=== PATIENT | male | born 1990 | race Caucasian/White ===

== ENCOUNTER 2017-07-19 03:31 | Emergency (ER) | payer SELFPAY ==
[~2017-07-19] VITALS: Ht 185.4 cm; Wt 83.9 kg
[~2017-07-19 03:31] MED LIST: AMOX500T2 PO; AMOX875T2 PO; Flexeril; HYDR-3720 PO; HYDR-756 PO; HYDR-757 PO; NAPR550T PO; PANT40TA2 PO; PRM25T PO; SILV25CR TP; SUCR1TAB36 PO; TRAM50TA2 PO
[2017-07-19] MEDS ORDERED: RX-NAPROXEN (NAPROSYN) 250 MG TAB PPK#4 PO STA (03:44)
[2017-07-19] MEDS ORDERED: AUGMENTIN 875 MG TAB (AMOXICILLIN/CLAVULANATE) PO SCH (03:45)
[2017-07-19] MEDS ORDERED: LIDOCAINE 2% VISCOUS 15 ML UDC MM ONE (03:45)
[2017-07-19] MEDS ORDERED: LIDO15SO2 MM (03:47)
[2017-07-19] MEDS ORDERED: NAPR500T3 PO (03:47)
[2017-07-19] MEDS ORDERED: AMOX-358 PO (03:47)
--- NOTE | 2017-07-19 03:48 | ED EENT ---
History of Present Illness General Chief Complaint: Dental Problems/Pain Stated Complaint: TOOTH PAIN L SIDE Nursing Triage Note: PT C/O L LOWER BACK DENTAL PAIN. Source: patient History of Present Illness Time seen by provider: 03:37 Initial Comments PT C/O DENTAL PAIN TO LEFT LOWER MOLAR AREA X 1 WEEK STATES HE WOKE UP IMMEDIATELY PRIOR TO ARRIVAL < 20 MINUTES AGO, WITH SEVERE PAIN TO JAW STATES "IT'S SO BAD IT'S NUMB AND CONSTANT THROBBING WITH PAIN, AND IT'S SO BAD IT'S GIVING ME A HEADACHE" NO SWELLING TO FACE NO FEVER HAS CHRONIC DENTAL PROBLEMS, INCLUDING PRIOR PROBLEMS WITH THIS TOOTH TYLENOL AND MOTRIN TAKEN EARLIER IN WEEK HELPED, BUT HAS NOT TAKEN ANYTHING TONIGHT FOR PAIN NO INJURY TO TOOTH PT NEVER SEES A DENTIST PCP; [facility] Allergies and Home Medications Allergies Coded Allergies: No Known Drug Allergies (Unverified , 10/01/11) Home Medications Amoxicillin 875 Mg Tablet, 875 MG PO BID, #20 Ref 0 Prescribed by: GRANT LOAIZA on 07/03/16410 Amoxicillin/Potassium Clav 1 Each Tablet, 1 EACH PO BID, #20 Prescribed by: ALISSA GALLEGOS on 07/19/17 034 Hydrocodone/Acetaminophen 1 Each Tablet, 1 EACH PO Q6H PRN for dental pain, #20 Ref 0 Prescribed by: GRANT LOAIZA on 07/03/16410 Lidocaine HCl 15 Ml Solution, 1-2 ML MM Q 1-2 HOURS, #100 Prescribed by: ALISSA GALLEGOS on 07/19/17346 Naproxen 500 Mg Tablet, 500 MG PO BID, #20 Prescribed by: ALISSA GALLEGOS on 07/19/17346 Naproxen Sodium 550 Mg Tablet, 550 MG PO Q12H, #20 Ref 0 Prescribed by: GRANT LOAIZA on 07/03/16410 Review of Systems Constitutional: no symptoms reported Eyes: No Symptoms Reported Ears: No Symptoms Reported Nose: no symptoms reported Mouth: see HPI, pain Throat: no symptoms reported Respiratory: no symptoms reported Cardiovascular: no symptoms reported Gastrointestinal: no symptoms reported Musculoskeletal: no symptoms reported Skin: no symptoms reported Neurological: See HPI, Headache Hematologic/Lymphatic: No Symptoms Reported Immunological/Allergic: no symptoms reported Past Ixswnid-Vwcyyg-Bsxbhn Hx Patient Social History Alcohol Use: Rarely Uses Recreational Drug Use: No Smoking Status: Current Everyday Smoker (1 PPD) Type Used: Cigarettes 2nd Hand Smoke Exposure: Yes Recent Foreign Travel: No Contact w/Someone Who Travel: No Recent Infectious Disease Expo: No Recent Hopitalizations: No Physical Abuse: No Sexual Abuse: No Immunizations Up To Date Date of Pneumonia Vaccine: Jul 05, 2011 Date of Influenza Vaccine: Aug 11, 2014 Seasonal Allergies Seasonal Allergies: No Surgeries History of Surgeries: Yes Surgeries: Adenoidectomy, Tonsillectomy Respiratory History of Respiratory Disorde: No Cardiovascular History of Cardiac Disorders: No Neurological History of Neurological Disord: No Reproductive System Hx Reproductive Disorders: No Sexually Transmitted Disease: No Gastrointestinal History of Gastrointestinal Di: No Musculoskeletal History of Musculoskeletal Dis: No Endocrine History of Endocrine Disorders: No HEENT History of HEENT Disorders: Yes (CHRONIC DENTAL PROBLEMS) Cancer History of Cancer: No Psychosocial History of Psychiatric Problem: No Suicide Risk Score: 0 Integumentary History of Skin or Integumenta: No Blood Transfusions History of Blood Disorders: No Physical Exam Vital Signs Vital Sign - Last 12Hours 07/19/17 03:36 Temp 97.3 Pulse 85 Resp 16 B/P (MAP) 135/75 Pulse Ox 97 General Appearance: WD/WN, no apparent distress, other (DOES NOT APPEAR TO BE IN ANY DISCOMFORT-ARMS OVERHEAD AND LEGS OUTSTRETCHED. TALKS WITHOUT DIFFICULTY) Eyes: bilateral eye normal inspection, bilateral eye PERRL, bilateral eye EOMI Ears: bilateral ear auricle normal, bilateral ear canal normal, bilateral ear TM normal Nose: normal inspection Mouth/Throat: other (MULTIPLE TEETH WITH DECAY. LEFT LOWER FIRST MOLAR WITH EXTENSIVE CARIES, + DENTAL TENDERNESS, MILD SWELLING AND ERYTHEMA TO ADJACENT GUM TISSUE. NO FACIAL SWELLING. ) Neck: normal inspection, No lymphadenopathy (R), No lymphadenopathy (L) Cardiovascular: regular rate, rhythm, no murmur Respiratory: normal breath sounds Neurologic/Psychiatric: director voice II-XII nml as tested, no motor/sensory deficits, alert, normal mood/affect, oriented x 3, No facial droop Skin: normal color, warm/dry Progress/Results/Core Measures Results/Orders My Orders Orders - ALISSA GALLEGOS DO Amoxicillin/Clavulanate Tablet (Augmenti (07/19/17 03:45) Lidocaine 2% Viscous 15 Ml (Xylocaine Vi (07/19/17 03:45) Rx-Naproxen (Rx-Naprosyn) (07/19/17 03:44) Vital Signs/I&O Vital Sign - Last 12Hours 07/19/17 03:36 Temp 97.3 Pulse 85 Resp 16 B/P (MAP) 135/75 Pulse Ox 97 Blood Pressure Mean: 95 Departure Impression Impression: Primary Impression: Dental caries Disposition: HOME, SELF-CARE Condition: Stable Departure-Patient Inst. Referrals: [facility] (PCP/Family) Primary Care Physician Patient Instructions: Dental Pain (DC), Tooth Decay, Adult (DC) Add. Discharge Instructions: FREQUENT SALT WATER SWISHES SOFT FOODS, AVOID FOODS THAT REQUIRE CHEWING FOLLOW UP WITH [facility] SOON POSSIBLE --CALL ON THURSDAY MORNING FOR APPOINTMENT All discharge instructions reviewed with patient and/or family. Voiced understanding. Scripts Naproxen (Naproxen) 500 Mg Tablet 500 MG PO BID, #20 TAB Prov: ALISSA GALLEGOS DO 07/19/17 Lidocaine HCl (Lidocaine HCl Viscous) 15 Ml Solution 1-2 ML MM Q 1-2 HOURS for Pain, #100 ML Prov: ALISSA GALLEGOS DO 07/19/17 Amoxicillin/Potassium Clav (Augmentin 875-125 Tablet) 1 Each Tablet 1 EACH PO BID for INFECTION, #20 TAB Prov: ALISSA GALLEGOS DO 07/19/17 ALISSA GALLEGOS DO Jul 19, 2017 03:48
[2017-07-19 04:05] VITALS: BP 135/75
== END 2017-07-19 04:05 | disposition home or self-care (01) ==
LOC: EDUNIT# 03:31 → ER 03:33
DX: K02.9 Dental caries, unspecified (principal); F17.210 Nicotine dependence, cigarettes, uncomplicated; Z90.89 Acquired absence of other organs
CPT/HCPCS: 99283

== ENCOUNTER 2017-07-20 19:02 | Emergency (ER) | payer SELFPAY ==
[2017-07-19 04:05] VITALS: BP 135/75
[~2017-07-20 19:02] MED LIST changes: +AMOX-358 PO; +LIDO15SO2 MM; +NAPR500T3 PO
--- OUTSIDE RECORDS SUMMARY | 2017-07-21 06:29 | XMS REPORT ---
Author Author DEN CLOUD [facility] Address [address] [place] [address] Care Team Providers Care Nail Making Machine Setter Name Role Phone DEN CLOUD Unavailable PROBLEMS Type Condition ICD9-CM Code [id number] Code Onset Dates Condition Status SNOMED Code Problem Anxiety F41.9 Active 90174766 Problem Mood disorder F39 Active 62416185 Problem Unspecified acute conjunctivitis 372.00 Active 64189012 Problem ADHD (attention deficit hyperactivity disorder), combined type F90.2 Active 07978983 Problem Generalized anxiety disorder F41.1 Active 94112848 ALLERGIES Unknown Allergies SOCIAL HISTORY No smoking Hx information available PLAN OF CARE Activity Details Follow Up Next available Reason:BH F/U VITAL SIGNS MEDICATIONS Unknown Medications RESULTS No Results PROCEDURES Procedure Date Ordered Related Diagnosis Body Site Psychotherapy, patient &/family, 45 minutes, established patient Sep 24, 2016 IMMUNIZATIONS No Known Immunizations
--- OUTSIDE RECORDS SUMMARY | 2017-07-21 06:29 | XMS REPORT ---
Author Author SHANNEN CABRAL [employer] Address Unknown Phone Unavailable Care Team Providers Care Health Data Analyst Name Role Phone SHANNEN CABRAL CP Unavailable Allergies, Adverse Reactions, Alerts Substance Reaction Event Type Abilify weakness Drug Allergy Problems Problem Type Condition Code Onset Dates Condition Status Assessment Dental examination Z01.20 Active Problem Unspecified acute conjunctivitis 372.00 Active Medications Medication Code System Code Instructions Start Date End Date Status Dosage Hydrocodone-Acetaminophen [facility] [address]-34 not defined Amoxicillin ER [facility] [address]-16 not defined Naproxen NDC 0 not defined Beyer [facility] [address]-84 5-325 MG Orally every 6 hrs Jul 08, 2016 Jul 12, 2016 1 tablet as needed Procedures Procedure Coding System Code Date INTRAORL-PERIAPICAL 1 FILM 33949 CPT-4 D0220 Jul 08, 2016 BITEWING - SINGLE FILM CPT-4 D0270 Jul 08, 2016 LTD ORAL EVALUATION - PROBLEM FOCUS CPT-4 D0140 Jul 08, 2016 Vital Signs Date/Time: Jul 08, 2016 Blood Pressure Diastolic 73 mmHg Blood Pressure Systolic 125 mmHg Height 75 in Results No Known Results Summary Purpose [employer] Submission
--- OUTSIDE RECORDS SUMMARY | 2017-07-21 06:29 | XMS REPORT ---
Author Author GRANT SAUL [facility] Address [address] [place] [address] Care Team Providers Care Online Content Coordinator Name Role Phone GRANT SAUL Unavailable PROBLEMS Type Condition ICD9-CM Code [id number] Code Onset Dates Condition Status SNOMED Code Problem Anxiety F41.9 Active 06808356 Problem Mood disorder F39 Active 68184550 Problem Unspecified acute conjunctivitis 372.00 Active 36391073 Problem ADHD (attention deficit hyperactivity disorder), combined type F90.2 Active 48983751 Problem Generalized anxiety disorder F41.1 Active 76434989 ALLERGIES Unknown Allergies SOCIAL HISTORY No smoking Hx information available PLAN OF CARE VITAL SIGNS MEDICATIONS Medication Instructions Dosage Frequency Start Date End Date Duration Status Xanax 1 MG Orally Once a day 1 tablet 24h Sep, 28 days Active RESULTS No Results PROCEDURES No Known procedures IMMUNIZATIONS No Known Immunizations
--- OUTSIDE RECORDS SUMMARY | 2017-07-21 06:30 | XMS REPORT ---
Author Author GRANT SAUL [facility] Address [address] [place] [address] Care Team Providers Care Ad Setter Name Role Phone GRANT SAUL Unavailable PROBLEMS Type Condition ICD9-CM Code [id number] Code Onset Dates Condition Status SNOMED Code Problem Anxiety F41.9 Active 19998953 Problem Mood disorder F39 Active 85620823 Problem Unspecified acute conjunctivitis 372.00 Active 40350446 Problem ADHD (attention deficit hyperactivity disorder), combined type F90.2 Active 28744035 Problem Generalized anxiety disorder F41.1 Active 12080733 ALLERGIES Substance Reaction Event Type Date Status Abilify weakness Drug Allergy Sep, Active SOCIAL HISTORY No smoking Hx information available PLAN OF CARE VITAL SIGNS MEDICATIONS Unknown Medications RESULTS No Results PROCEDURES No Known procedures IMMUNIZATIONS No Known Immunizations
--- OUTSIDE RECORDS SUMMARY | 2017-07-21 06:30 | XMS REPORT ---
Author Author GRANT SAUL [facility] Address [address] [place] [address] Care Team Providers Care Distribution Warehouse Manager Name Role Phone GRANT SAUL Unavailable PROBLEMS Type Condition ICD9-CM Code [id number] Code Onset Dates Condition Status SNOMED Code Problem Anxiety F41.9 Active 05440918 Problem Mood disorder F39 Active 89113013 Problem Unspecified acute conjunctivitis 372.00 Active 18944696 Problem ADHD (attention deficit hyperactivity disorder), combined type F90.2 Active 82354796 Problem Generalized anxiety disorder F41.1 Active 77273287 ALLERGIES Substance Reaction Event Type Date Status Abilify weakness Drug Allergy Sep, Active SOCIAL HISTORY No smoking Hx information available PLAN OF CARE VITAL SIGNS Height 75 in 2016-09-26 Weight 174.9 lbs 2016-09-26 Temperature 98.1 degrees Fahrenheit 2016-09-26 Heart Rate 72 bpm 2016-09-26 Respiratory Rate 18 2016-09-26 BMI 21.86 kg/m2 2016-09-26 Blood pressure systolic 100 mmHg 2016-09-26 Blood pressure diastolic 72 mmHg 2016-09-26 MEDICATIONS Medication Instructions Dosage Frequency Start Date End Date Duration Status Xanax 1 MG Orally Once a day 1 tablet 24h Sep, 28 days Active RESULTS No Results PROCEDURES Procedure Date Ordered Related Diagnosis Body Site Office Visit, Est Pt., Level 3 Sep 26, 2016 IMMUNIZATIONS No Known Immunizations
--- OUTSIDE RECORDS SUMMARY | 2017-07-21 06:30 | XMS REPORT | Continuity of Care Document ---
Author Author 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 04/21/2008 ALEXANDRE HOOVER MD 314.01 CD ADHD COMBINED 05/03/2008 ALEXANDRE HOOVER MD V58.69 MEDICATION HIGH RISK 05/15/2008 ALEXANDRE HOOVER MD V74.1 SCREENING EXAMINATION FOR PULMONARY TUBERCULOSIS 06/07/2008 ALEXANDRE HOOVER MD 078.10 WARTS UNSPECIFIED ALL SITES 07/17/2009 ALEXANDRE HOOVER MD V74.5 STD SCREEN 12/28/2011 Ot 922.1 CONTUSION OF CHEST WALL 12/28/2011 Ot 959.11 OTH INJURY OF CHEST WALL 12/28/2011 Ot E000.8 OTHER EXTERNAL CAUSE STATUS 12/28/2011 Ot E849.0 ACCIDENT IN HOME 12/28/2011 Ot E917.4 STAT OB W/O SUB FALL NEC 03/08/2012 Ot 276.50 VOLUME DEPLETION, UNSPECIFIED 03/08/2012 Ot 787.03 VOMITING ALONE 12/08/2013 ALEXANDRE HOOVER MD 372.00 ACUTE CONJUNCTIVITIS UNSPECIFIED 09/24/2014 KATIE BLANCAS MD Ot 521.00 UNSPEC DENTAL CARIES 09/24/2014 KATIE BLANCAS MD Ot 525.9 DENTAL DISORDER NOS 10/24/2014 MARCO PRICE Ot 521.00 UNSPEC DENTAL CARIES 10/24/2014 MARCO PRICE Ot 522.5 PERIAPICAL ABSCESS 10/24/2014 MARCO PRICE Ot 525.9 DENTAL DISORDER NOS 09/20/2015 HANY GARCIA APRN Ot F17.210 NICOTINE DEPENDENCE, CIGARETTES, UNCOMPL 09/20/2015 HANY GARCIA APRN Ot K29.70 GASTRITIS, UNSPECIFIED, WITHOUT BLEEDING 06/12/2016 KATIE BLANCAS MD Ot M54.5 LOW BACK PAIN 06/12/2016 KATIE BLANCAS MD Ot M62.830 MUSCLE SPASM OF BACK 07/05/2016 GRANT LOAIZA DO Ot F17.210 NICOTINE DEPENDENCE, CIGARETTES, UNCOMPL 07/05/2016 GRANT LOAIZA DO Ot K02.9 DENTAL CARIES, UNSPECIFIED 07/05/2016 GRANT LOAIZA DO Ot K08.9 DISORDER OF TEETH AND SUPPORTING STRUCTU Procedures Results Encounters ACCT No. Visit Date/Time Discharge Status Pt. Type Provider Facility Loc./Unit Complaint [id number] 12/08/2013 10:43:00 12/08/2013 23: 59:59 CLS Outpatient ALEXANDRE HOOVER MD [id number] 07/03/2016 03:46:00 2015 04:19:00 DIS Emergency GRANT LOAIZA DO Via [facility] ER DENTAL PAIN [id number] 06/12/2016 07:48:00 2015 08:34:00 DIS Emergency KATIE BLANCAS MD [facility] ER BACK PAIN [id number] 09/20/2015 15:00:00 2014 16:15:00 DIS Emergency HANY GARCIA APRN [facility] ER ABD PAIN [id number] 10/24/2014 16:37:00 2014 17:44:00 DIS Emergency MARCO PRICE [facility] ER DENTAL PAIN [id number] 09/24/2014 09:28:00 2013 10:45:00 DIS Emergency KATIE BLANCAS MD [facility] ER DENTAL PAIN [id number] 03/08/2012 19:18:00 Document Registration [id number] 12/28/2011 16:43:00 Document Registration
--- OUTSIDE RECORDS SUMMARY | 2017-07-21 06:30 | XMS REPORT ---
Author Author GRANT SAUL [facility] Address [address] [place] [address] Care Team Providers Care Benefits Representative Name Role Phone GRANT SAUL Unavailable PROBLEMS Type Condition ICD9-CM Code HSU69-TC Code Onset Dates Condition Status SNOMED Code Problem Anxiety F41.9 Active 61659287 Problem Mood disorder F39 Active 15490125 Problem Unspecified acute conjunctivitis 372.00 Active 72239068 Problem ADHD (attention deficit hyperactivity disorder), combined type F90.2 Active 47387668 Problem Generalized anxiety disorder F41.1 Active 36717929 ALLERGIES No Information SOCIAL HISTORY Never Assessed PLAN OF CARE VITAL SIGNS MEDICATIONS Unknown Medications RESULTS No Results PROCEDURES No Known procedures IMMUNIZATIONS No Known Immunizations MEDICAL (GENERAL) HISTORY Type Description Date Medical History back trouble Medical History ADHD Medical History Anxiety with Anger problems Surgical History tonsillectomy and adenoidectomy Hospitalization History Surgery(s) only
== END 2017-07-20 20:19 | disposition left against medical advice (07) ==
LOC: EDUNIT# 19:02 → ER 19:03
DX: K08.89 Other specified disorders of teeth and supporting structures (principal)

== ENCOUNTER 2017-09-24 21:59 | Emergency (ER) | payer SELFPAY ==
[~2017-09-24] VITALS: Ht 190.5 cm; Wt 83.9 kg
[~2017-09-24 21:59] MED LIST changes: +NAPR-1070 PO; -NAPR500T3 PO; +NAPR500T4 PO; -NAPR550T PO
[2017-09-24] MEDS ORDERED: AMOXICILLIN 500 MG (POLYMOX) CAP PO STA (22:03)
[2017-09-24] MEDS ORDERED: RX-NAPROXEN (NAPROSYN) 250 MG TAB PPK#4 PO STA (22:03)
[2017-09-24] MEDS ORDERED: LIDOCAINE/EPI 2% 1:100,00 (XYLOCAINE) 20 ML VIAL ONE (22:04)
--- OUTSIDE RECORDS SUMMARY | 2017-09-24 22:04 | XMS REPORT | Continuity of Care Document ---
Author Author [facility] Address Unknown Phone Unavailable Allergies Active Description Code Type Severity Reaction Onset Reported/Identified Relationship to Patient Clinical Status Yes No Known Drug Allergies [id number] Drug Allergy Unknown N/A 10/01/2011 Yes Abilify Drug Allergy N/A N/A 12/08/2013 Medications There is no data. Problems Date Dx Coded Attending Type Code [...] 525.9 DENTAL DISORDER NOS 09/20/2015 HANY GARCIA BOTTLE TESTER Ot F17.210 NICOTINE DEPENDENCE, CIGARETTES, UNCOMPL 09/20/2015 HANY GARCIA BOTTLE TESTER Ot K29.70 GASTRITIS, UNSPECIFIED, WITHOUT BLEEDING 06/12/2016 YONNY LARA, KATIE Oneal Ot M54.5 LOW BACK PAIN 06/12/2016 KATIE BLANCAS MD Ot M62.830 MUSCLE SPASM OF BACK 07/03/2016 GRANT LOAIZA DO Ot F17.210 NICOTINE DEPENDENCE, CIGARETTES, UNCOMPL 07/03/2016 GRANT LOAIZA DO Ot K02.9 DENTAL CARIES, UNSPECIFIED 07/03/2016 GRANT LOAIZA DO Ot K08.9 DISORDER OF TEETH AND SUPPORTING STRUCTU 07/05/2016 GRANT LOAIZA DO Ot F17.210 NICOTINE DEPENDENCE, CIGARETTES, UNCOMPL 07/05/2016 GRANT LOAIZA DO Ot K02.9 DENTAL CARIES, UNSPECIFIED 07/05/2016 GRANT LOAIZA DO Ot K08.9 DISORDER OF TEETH AND SUPPORTING STRUCTU 07/19/2017 ELELLIE Musa DOA Kimmy Ot F17.210 NICOTINE DEPENDENCE, CIGARETTES, UNCOMPL 07/19/2017 EL DOELLIEA K Ot K02.9 DENTAL CARIES, UNSPECIFIED 07/19/2017 ELLIE GALLEGOS DOA K Ot R68.84 JAW PAIN 07/19/2017 EL DO ALISSA K Ot Z90.89 ACQUIRED ABSENCE OF OTHER ORGANS Procedures There is no data. Results There is no data. Encounters ACCT No. Visit Date/Time Discharge Status Pt. Type Provider Facility Loc./Unit Complaint [id number] 12/08/2013 10:43:00 12/08/2013 23:59:59 CLS Outpatient KIKO LARA, ALEXANDRE Oneill [id number] 07/20/2017 19:03:00 07/20/2017 20:19:00 DIS Emergency SELENA LINTON MD [facility] ER DENTAL PAIN [id number] 07/19/2017 03:33:00 07/19/2017 04:05:00 DIS Emergency ALISSA GALLEGOS DO [facility] ER TOOTH PAIN L SIDE [id number] 07/03/2016 03:46:00 07/03/2016 04:19:00 DIS Emergency GRANT LOAIZA DO [facility] ER DENTAL PAIN [id number] 06/12/2016 07:48:00 06/12/2016 08:34:00 DIS Emergency YONNY LARA, KATIE Oneal [facility] ER BACK PAIN [id number] 09/20/2015 15:00:00 09/20/2015 16:15:00 DIS Emergency HANY GARCIA APRN [facility] ER ABD PAIN [id number] 10/24/2014 16:37:00 10/24/2014 17:44:00 DIS Emergency MARCO PRICE [facility] ER DENTAL PAIN [id number] 09/24/2014 09:28:00 09/24/2014 10:45:00 DIS Emergency KATIE BLANCAS MD [facility] ER DENTAL PAIN [id number] 03/08/2012 19:18:00 Document Registration [id number] 12/28/2011 16:43:00 Document Registration
--- NOTE | 2017-09-24 22:10 | ED EENT ---
History of Present Illness General Chief Complaint: Dental Problems/Pain Stated Complaint: DENTAL PAIN Source: patient Exam Limitations: no limitations History of Present Illness Time seen by provider: 22:08 Initial Comments To ER with left lower dental pain for the past 2 days. Does not have a dentist but does see the [facility] on [address]. He has been out of control for 2 days. Been seen here in the emergency room a multitude of times for dental pain. No fevers or chills. Timing/Duration: abrupt Severity: moderate Location: dental Associated Symptoms: denies symptoms Allergies and Home Medications Allergies Coded Allergies: No Known Drug Allergies (Unverified , 10/01/11) Home Medications Amoxicillin 875 Mg Tablet, 875 MG PO BID, #20 Ref 0 Prescribed by: GRANT LOAIZA on 07/03/16410 Amoxicillin/Potassium Clav 1 Each Tablet, 1 EACH PO BID, #20 Prescribed by: ALISSA GALLEGOS on 07/19/17 034 Hydrocodone/Acetaminophen 1 Each Tablet, 1 EACH PO Q6H PRN for dental pain, #20 Ref 0 Prescribed by: GRANT LOAIZA on 07/03/16410 Lidocaine HCl 15 Ml Solution, 1-2 ML MM Q 1-2 HOURS, #100 Prescribed by: ALISSA GALLEGOS on 07/19/17 034 Naproxen 500 Mg Tablet, 500 MG PO BID, #20 Prescribed by: ALISSA GALLEGOS on 07/19/17346 Naproxen Sodium 550 Mg Tablet, 550 MG PO Q12H, #20 Ref 0 Prescribed by: GRANT LOAIZA on 07/03/16410 Review of Systems Constitutional: see HPI Eyes: No Symptoms Reported Ears: No Symptoms Reported Nose: no symptoms reported Mouth: see HPI Throat: no symptoms reported Respiratory: no symptoms reported Cardiovascular: no symptoms reported Musculoskeletal: no symptoms reported Past Zcknxgi-Qjybwt-Hajjuu Hx Patient Social History Alcohol Use: Denies Use Recreational Drug Use: No Smoking Status: Current Everyday Smoker Type Used: Cigarettes 2nd Hand Smoke Exposure: Yes Recent Foreign Travel: No Contact w/Someone Who Travel: No Recent Hopitalizations: No Physical Abuse: No Sexual Abuse: No Mistreated: No Fear: No Immunizations Up To Date Date of Pneumonia Vaccine: Jul 05, 2011 Date of Influenza Vaccine: Aug 11, 2014 Seasonal Allergies Seasonal Allergies: No Surgeries History of Surgeries: Yes Surgeries: Adenoidectomy, Tonsillectomy Respiratory History of Respiratory Disorde: No Cardiovascular History of Cardiac Disorders: No Neurological History of Neurological Disord: No Reproductive System Hx Reproductive Disorders: No Sexually Transmitted Disease: No Genitourinary History of Genitourinary Disor: No Gastrointestinal History of Gastrointestinal Di: No Musculoskeletal History of Musculoskeletal Dis: No Endocrine History of Endocrine Disorders: No HEENT History of HEENT Disorders: Yes (CHRONIC DENTAL PROBLEMS) Cancer History of Cancer: No Psychosocial History of Psychiatric Problem: No Suicide Risk Score: 0 Integumentary History of Skin or Integumenta: No Blood Transfusions History of Blood Disorders: No Physical Exam Vital Signs Vital Sign - Last 12Hours 09/24/17 22:05 Temp 98.2 Pulse 73 Resp 18 B/P (MAP) 145/81 (102) Pulse Ox 99 General Appearance: WD/WN, no apparent distress Eyes: bilateral eye normal inspection, bilateral eye PERRL, bilateral eye EOMI Ears: bilateral ear auricle normal, bilateral ear canal normal, bilateral ear TM normal Nose: normal inspection Mouth/Throat: other (gingivitis, multiple dental caries and fractured teeth. There is no fluctuance to the left lower molars to suggest abscess) Neck: non-tender, full range of motion Respiratory: no respiratory distress, no accessory muscle use Gastrointestinal: normal bowel sounds, non tender Neurologic/Psychiatric: alert, normal mood/affect, oriented x 3 Skin: normal color, warm/dry I did do an inferior alveolar nerve block using 1.5 mL of 2 percent lidocaine with epinephrine Progress/Results/Core Measures Results/Orders My Orders Orders - HANY GARCIA APRN Rx-Naproxen (Rx-Naprosyn) (09/24/17 22:03) Lidocaine 2% Viscous 15 Ml (Xylocaine Vi (09/24/17 22:15) Amoxicillin Capsule (Polymox Capsule) (09/24/17 22:03) Lidocaine/Epi 2% 1:100,000 (Xylocaine/Ep (09/24/17 22:04) Lidocaine/Epi 2% 1:100,000 (Xylocaine/Ep (09/24/17 22:15) Vital Signs/I&O Vital Sign - Last 12Hours 09/24/17 22:05 Temp 98.2 Pulse 73 Resp 18 B/P (MAP) 145/81 (102) Pulse Ox 99 Departure Impression Impression: Primary Impression: Pain due to dental caries Disposition: HOME, SELF-CARE Condition: Stable Departure-Patient Inst. Decision time for Depature: 22:09 Referrals: NO,LOCAL PHYSICIAN (PCP/Family) Primary Care Physician Patient Instructions: Dental Pain (DC) Add. Discharge Instructions: 1. Call [facility] tomorrow to make an appointment to be seen or go up there to make an appointment. All discharge instructions reviewed with patient and/or family. Voiced understanding. Scripts Amoxicillin (Amoxicillin) 500 Mg Capsule 500 MG PO TID, #21 CAP Prov: HANY GARCIA APRN 09/24/17 Images Mouth/Nose 1 - Caries, Fracture Tooth, Tenderness HANY GARCIA APRN Sep 24, 2017 22:10
[2017-09-24] MEDS ORDERED: AMOX500C2 PO (22:12)
[2017-09-24] MEDS ORDERED: LIDOCAINE/EPI 2% 1:100,00 (XYLOCAINE) 20 ML VIAL INJ ONE (22:15)
[2017-09-24] MEDS ORDERED: LIDOCAINE 2% VISCOUS 15 ML UDC PO ONE (22:15)
[2017-09-24 22:23] VITALS: BP 132/87
== END 2017-09-24 22:23 | disposition home or self-care (01) ==
LOC: EDUNIT# 21:59 → ER 22:00
DX: K02.9 Dental caries, unspecified (principal); F17.210 Nicotine dependence, cigarettes, uncomplicated; Z90.89 Acquired absence of other organs
CPT/HCPCS: 99283

== ENCOUNTER 2018-01-14 11:01 | Emergency (ER) | payer SELFPAY ==
[~2018-01-14] VITALS: Ht 188 cm; Wt 86.2 kg
[~2018-01-14 11:01] MED LIST changes: +AMOX500C2 PO; +NAPR-915 PO; -NAPR500T4 PO
--- NOTE | 2018-01-14 11:16 | ED EENT ---
History of Present Illness General Chief Complaint: Oral/Throat Problems Stated Complaint: THROAT ISSUES History of Present Illness Date Seen by Provider: Jan 14, 2018 Time Seen by Provider: 11:11 Initial Comments Patient is a 27-year-old male who present to the ER with days of sore throat, pain, fevers, for 2 days. States he is unable to swallow his saliva due to the pain and has also had some coughing. Location: throat Allergies and Home Medications Allergies Coded Allergies: No Known Drug Allergies (Unverified , 10/01/11) Home Medications Amoxicillin 500 Mg Capsule, 500 MG PO TID Prescribed by: HANY GARCIA on 01/14/18 1146 Patient Home Medication List Home Medication List Reviewed: Yes Review of Systems Constitutional: no symptoms reported, see HPI, fever Eyes: No Symptoms Reported, See HPI, Pain (throat) Ears: No Symptoms Reported, See HPI Nose: no symptoms reported, see HPI Mouth: no symptoms reported, see HPI Throat: see HPI, pain, painful swallowing Respiratory: no symptoms reported, see HPI Cardiovascular: no symptoms reported, see HPI Gastrointestinal: no symptoms reported, see HPI Musculoskeletal: no symptoms reported, see HPI Skin: no symptoms reported, see HPI Neurological: No Symptoms Reported, See HPI Hematologic/Lymphatic: No Symptoms Reported, See HPI Immunological/Allergic: no symptoms reported, see HPI Past Yhxzvie-Ihjpng-Itfyte Hx Patient Social History Type Used: Cigarettes 2nd Hand Smoke Exposure: Yes Recent Foreign Travel: No Contact w/Someone Who Travel: No Recent Hopitalizations: No Immunizations Up To Date Date of Pneumonia Vaccine: Jul 05, 2011 Date of Influenza Vaccine: Aug 11, 2014 Seasonal Allergies Seasonal Allergies: No Past Medical History Surgeries: Yes Adenoidectomy, Tonsillectomy Respiratory: No Cardiac: No Neurological: No Reproductive Disorders: No Sexually Transmitted Disease: No Genitourinary: No Gastrointestinal: No Musculoskeletal: No Endocrine: No HEENT: Yes (CHRONIC DENTAL PROBLEMS) Cancer: No Psychosocial: No Integumentary: No Blood Disorders: No Physical Exam Vital Signs Vital Signs - First Documented 01/14/18 11:10 Temp 99.9 Pulse 105 Resp 18 B/P (MAP) 152/74 (100) Pulse Ox 100 O2 Delivery Room Air General Appearance: WD/WN, no apparent distress Eyes: bilateral eye normal inspection, bilateral eye PERRL Ears: bilateral ear auricle normal, bilateral ear canal normal, bilateral ear TM normal Nose: normal inspection Mouth/Throat: other (the throat is there is no muffled or hot potato voice, he has had a tonsillectomy, the uvula is midline and there is no deviation.) Cardiovascular: normal peripheral pulses, regular rate, rhythm, tachycardia Respiratory: chest non-tender, lungs clear Gastrointestinal: normal bowel sounds, non tender Neurologic/Psychiatric: alert, normal mood/affect, oriented x 3 Skin: normal color, warm/dry Progress/Results/Core Measures Lab Results Laboratory Tests Test 01/14/18 11:14 Range/Units Group A Streptococcus Screen NEGATIVE NEGATIVE My Orders Orders - HANY GARCIA APRN Rapid Strep A Screen (01/14/18 11:10) Dexamethasone Injection (Decadron Inject (01/14/18 11:30) Vital Signs/I&O 01/14/18 11:10 Temp 99.9 Pulse 105 Resp 18 B/P (MAP) 152/74 (100) Pulse Ox 100 O2 Delivery Room Air Departure Impression Primary Impression: Streptococcal sore throat Additional Impression: Viral infection Disposition: 01 HOME, SELF-CARE Condition: Stable/Unchanged Departure-Patient Inst. Decision time for Depature: 11:42 Referrals: [facility] [place]) Primary Care Physician Patient Instructions: Viral Pharyngitis (DC), Strep Throat (DC) Add. Discharge Instructions: Follow-up with your physician within 1 week for a recheck or return back here for any worsening pain, trouble breathing, increase. Take medications as directed and do not start her antibiotic if you start feeling better. All discharge instructions reviewed with patient and/or family. Voiced understanding. Scripts Amoxicillin (Amoxicillin) 500 Mg Capsule 500 MG PO TID for 7 Days, #21 CAP Prov: HANY GARCIA APRN 01/14/18 Work/School Note: Work Release Form Date Seen in the Emergency Department: Jan 14, 2018 Return to Work: Jan 16, 2018 Restrictions: No Restrictions HANY GARCIA APRN Jan 14, 2018 11:16
[2018-01-14] MEDS ORDERED: DEXAMETHASONE 10 MG/ML (DECADRON) 1 ML VIAL IM ONE (11:30)
[2018-01-14] MEDS ORDERED: AMOX500C2 PO (11:46)
[2018-01-14 12:10] VITALS: BP 152/74
== END 2018-01-14 11:58 | disposition home or self-care (01) ==
LOC: EDUNIT# 11:01 → ER 11:03
DX: J02.0 Streptococcal pharyngitis (principal); B34.9 Viral infection, unspecified; Z77.22 Contact with and (suspected) exposure to environmental tobacco smoke (acute) (chronic); Z90.89 Acquired absence of other organs
CPT/HCPCS: 87430; 96372; 99284

== ENCOUNTER 2018-01-29 06:34 | Emergency (ER) | payer SELFPAY ==
[~2018-01-29] VITALS: Ht 188 cm; Wt 87.5 kg
[2018-01-29] MEDS ORDERED: RT-ALBUTEROL SULF 2.5 MG/3 ML PRE-MIX VIAL INH STA (06:43)
[2018-01-29] MEDS ORDERED: RT-IPRATROPIUM (ATROVENT) 0.5MG/2.5ML AMP IH ONE (06:45)
[2018-01-29] MEDS ORDERED: FLUT9.9S NSEACH (08:16)
--- NOTE | 2018-01-29 08:16 | ED General ---
General Chief Complaint: Cough/Cold/Flu Symptoms Stated Complaint: CONGESTION,LEFT EAR PAIN Nursing Triage Note: PATIENT STATES THAT HE WAS HERE A WEEK AGO AND DIAGNOSED WITH STREP. HE HAS FINISHED HIS ANTIBIOTICS BUT HIS SYMPTOMS ARE WORSE. HE COUGHS SO HARD THAT HE HAS HAD STREAKS OF BLOOD IN HIS SPUTUM, USUALLY ITS THICK ANS WHITE-CLEAR. Nursing Sepsis Screen: Possible Sepsis Risk Source of Information: Patient Exam Limitations: No Limitations History of Present Illness Date Seen by Provider: Jan 29, 2018 Time Seen by Provider: 07:54 Initial Comments This 27-year-old young man presents to the emergency room with complaints of congestion and cough. He had a subjective fever this morning. He has been ill for about one week. A few weeks ago he finished antibiotics for strep throat and then developed this new set of symptoms. He has a significant amount of rhinorrhea and must blow his nose frequently. Patient is a smoker. Allergies and Home Medications Allergies Coded Allergies: No Known Drug Allergies (Unverified , 10/01/11) Home Medications Fluticasone Propionate 9.9 Ml [place].susp, 2 SPRAY NSEACH DAILY 2 SPRAYS PER NOSTRIL DAILY X 2 DAYS THEN 1 SPRAY DAILY Prescribed by: BRIANNA ALAS on 01/29/18 0816 Patient Home Medication List Home Medication List Reviewed: Yes Review of Systems Constitutional: see HPI EENTM: see HPI Respiratory: see HPI Cardiovascular: no symptoms reported Gastrointestinal: no symptoms reported Genitourinary: no symptoms reported Musculoskeletal: no symptoms reported Skin: no symptoms reported Psychiatric/Neurological: No Symptoms Reported Hematologic/Lymphatic: No Symptoms Reported Immunological/Allergic: no symptoms reported Past Thcaggs-Gypzmf-Pqmhuk Hx Patient Social History Alcohol Use: Denies Use Recreational Drug Use: No Smoking Status: Current Everyday Smoker Type Used: Cigarettes 2nd Hand Smoke Exposure: Yes Recent Foreign Travel: No Contact w/Someone Who Travel: No Recent Infectious Disease Expo: No Recent Hopitalizations: No Physical Abuse: No Sexual Abuse: No Immunizations Up To Date Date of Pneumonia Vaccine: Jul 05, 2011 Date of Influenza Vaccine: Aug 11, 2014 Seasonal Allergies Seasonal Allergies: No Past Medical History Surgeries: Yes Adenoidectomy, Tonsillectomy Respiratory: No Cardiac: No Neurological: No Reproductive Disorders: No Sexually Transmitted Disease: No Genitourinary: No Gastrointestinal: No Musculoskeletal: No Endocrine: No HEENT: Yes (CHRONIC DENTAL PROBLEMS) Cancer: No Psychosocial: No Nursing Suicide Risk Score: 0 Integumentary: No Blood Disorders: No Physical Exam Vital Signs Vital Signs - First Documented 01/29/18 07:11 Temp 98.6 Pulse 94 Resp 20 B/P (MAP) 140/60 (86) Pulse Ox 98 O2 Delivery Room Air Capillary Refill : Less Than 3 Seconds General Appearance: No Apparent Distress, WD/WN HEENT: PERRL/EOMI, TMs Normal, Normal ENT Inspection, Other (Copious postnasal drainage in the throat) Respiratory: Lungs Clear, Normal Breath Sounds, No Accessory Muscle Use, No Respiratory Distress Cardiovascular: Regular Rate, Rhythm, No Edema, No Murmur Gastrointestinal: Non Tender, Soft Extremity: Normal Inspection, No Pedal Edema Neurologic/Psychiatric: Alert, Oriented x3, No Motor/Sensory Deficits, Normal Mood/Affect, carton liner II-XII Norm as Tested Skin: Normal Color, Warm/Dry Progress/Results/Core Measures Suspected Sepsis Recent Fever Within 48 Hours: Yes Infection Criteria Present: Suspected New Infection New/Unexplained Altered Menta: No Sepsis Screen: Possible Sepsis Risk SIRS Temperature:98.6 Pulse: 94 Respiratory Rate: 20 Blood Pressure 140 /60 Mean: 86 Results/Orders My Orders Orders - BRIANNA LANTIGUA MD Albuterol Pre-Mix Nebs (Rt) (Proventil (01/29/18 06:43) Ipratropium 0.02% Neb Solution (Atrovent (01/29/18 06:45) These orders were canceled Vital Signs/I&O Capillary Refill : Less Than 3 Seconds Blood Pressure Mean: 86 Progress Note : Progress Note No workup was felt necessary in the emergency room after exam. Work note was provided. I had a long conversation with patient about risks of smoking and tactics for smoking cessation. Departure Impression Primary Impression: Upper respiratory infection Qualified Codes: J06.9 - Acute upper respiratory infection, unspecified Additional Impression: Smoking Disposition: 01 HOME, SELF-CARE Condition: Stable Departure-Patient Inst. Decision time for Depature: 08:14 Referrals: [facility] (PCP/Family) Primary Care Physician Patient Instructions: Quitting Smoking, Viral Upper Respiratory Infection, Adult (DC) Add. Discharge Instructions: Drink plenty of clear liquids. For pain or fever you may take ibuprofen and/or Tylenol (acetaminophen). Use Flonase or its generic equivalent as prescribed to help with nasal congestion and drainage. Work toward quitting smoking. If you elect to vape, do not smoke in addition to vaping. Gum, patches, and lozenges are preferred form of nicotine replacement over vaping as vaping may still contribute to lung disease. Return to care if symptoms are worsening. Follow-up with your primary care provider if you need further assistance with your symptoms or quitting smoking. You may use [id number] cough or cold medicines to help manage your symptoms. All discharge instructions reviewed with patient and/or family. Voiced understanding. Scripts Fluticasone Propionate (Flonase Allergy Relief) 9.9 Ml [place].susp 2 SPRAY NSEACH DAILY, #1 EACH 2 SPRAYS PER NOSTRIL DAILY X 2 DAYS THEN 1 SPRAY DAILY Prov: BRIANNA LANTIGUA MD 01/29/18 Work/School Note: Work Release Form Date Seen in the Emergency Department: Jan 29, 2018 Return to Work: Feb 01, 2018 Restrictions: No Restrictions BRIANNA LANTIGUA MD Jan 29, 2018 08:16
[2018-01-29 08:25] VITALS: BP 140/60
== END 2018-01-29 08:28 | disposition home or self-care (01) ==
LOC: EDUNIT# 06:34 → ER 06:42
DX: J06.9 Acute upper respiratory infection, unspecified (principal); F17.210 Nicotine dependence, cigarettes, uncomplicated; Z90.89 Acquired absence of other organs; Z79.51 Long term (current) use of inhaled steroids
CPT/HCPCS: 99282

== ENCOUNTER 2018-03-09 01:04 | Emergency (ER) | payer SELFPAY ==
[~2018-03-09] VITALS: Ht 188 cm; Wt 85.7 kg
[~2018-03-09 01:04] MED LIST changes: +FLUT9.9S NSEACH
[2018-03-09] MEDS ORDERED: ACETAMINOPHEN 500 MG TAB (TYLENOL) PO ONE (01:30)
[2018-03-09] MEDS ORDERED: AMOX500C2 PO (01:30)
[2018-03-09] MEDS ORDERED: AMOXICILLIN 500 MG (POLYMOX) CAP PO STA (01:30)
[2018-03-09] MEDS ORDERED: LIDOCAINE 2% VISCOUS 15 ML UDC PO ONE (01:30)
--- NOTE | 2018-03-09 01:30 | ED EENT ---
History of Present Illness General Chief Complaint: Dental Problems/Pain Stated Complaint: DENTAL PAIN Source: patient Exam Limitations: no limitations History of Present Illness Date Seen by Provider: Mar 09, 2018 Time Seen by Provider: 01:20 Initial Comments The patient presents to the ER by private conveyance with a chief complaint he is having some left lower jaw tooth pain. 2 weeks ago he's eating some pizza any cracked his molar on the left lower side. It wasn't bothering him till about 2 days ago. He does not have any allergies to any medicines nor significant medical problems. He has used a total of 4 ibuprofen today and does not feel that this helped. He has not use Tylenol, Orajel or heat. Allergies and Home Medications Allergies Coded Allergies: No Known Drug Allergies (Unverified , 10/01/11) Home Medications Fluticasone Propionate 9.9 Ml [place].susp, 2 SPRAY NSEACH DAILY 2 SPRAYS PER NOSTRIL DAILY X 2 DAYS THEN 1 SPRAY DAILY Prescribed by: BRIANNA ALAS on 01/29/18 0816 Patient Home Medication List Home Medication List Reviewed: Yes Review of Systems Constitutional: No chills, No fever, No malaise Eyes: Denies Blindness, Denies Blurred Vision Ears: Denies Pain, Denies Bloody Discharge, Denies Clear Discharge Nose: denies clots, denies congestion Mouth: denies clots, denies loose teeth; pain, swelling; denies bloody discharge, denies clear discharge, denies purulent discharge Throat: denies swelling, denies discharge, denies neck stiffness, denies hoarse Respiratory: No cough, No short of breath Past Bktkrdj-Nrqbxe-Fcicqk Hx Patient Social History Recreational Drug Use: No Smoking Status: Current Everyday Smoker Type Used: Cigarettes 2nd Hand Smoke Exposure: Yes Recent Foreign Travel: No Contact w/Someone Who Travel: No Recent Hopitalizations: No Immunizations Up To Date Date of Pneumonia Vaccine: Jul 05, 2011 Date of Influenza Vaccine: Aug 11, 2014 Seasonal Allergies Seasonal Allergies: No Past Medical History Surgeries: Yes Adenoidectomy, Tonsillectomy Respiratory: No Cardiac: No Neurological: No Reproductive Disorders: No Sexually Transmitted Disease: No Genitourinary: No Gastrointestinal: No Musculoskeletal: No Endocrine: No HEENT: Yes (CHRONIC DENTAL PROBLEMS) Cancer: No Psychosocial: No Integumentary: No Blood Disorders: No Physical Exam General Appearance: WD/WN, no apparent distress Eyes: bilateral eye normal inspection, bilateral eye PERRL, bilateral eye EOMI Ears: bilateral ear auricle normal, bilateral ear canal normal, bilateral ear TM normal Nose: normal inspection; No active bleeding, No discharge Mouth/Throat: No maxillary swelling; other (amalgam fillings, dental caries and a chipped left lower mandibular molar) Neck: non-tender, supple, normal inspection Cardiovascular: normal peripheral pulses, regular rate, rhythm Neurologic/Psychiatric: alert, oriented x 3 Skin: normal color, warm/dry Progress/Results/Core Measures Results/Orders My Orders Orders - SELENA LINTON Lidocaine 2% Viscous 15 Ml (Xylocaine Vi (03/09/18 01:30) Acetaminophen Tablet (Tylenol Tablet) (03/09/18 01:30) Progress Progress Note : Time: 01:27 Progress Note He has declined an alveolar nerve block. We'll give him viscous lidocaine, Tylenol, appropriate dosing instructions for NSAIDs and Tylenol as well as amoxicillin. Departure Impression Primary Impression: Dental caries Disposition: HOME, SELF-CARE Condition: Stable Departure-Patient Inst. Decision time for Depature: 01:28 Referrals: [facility] (PCP/Family) Primary Care Physician Patient Instructions: Fractured Tooth (DC) Add. Discharge Instructions: supervisor drying and winding the amoxicillin from [facility] pharmacy and start taking one capsule 3 times a day for the next 7 days. You can use ibuprofen 800 mg, 4 tablets every 8 hours as needed for pain. You can use Tylenol 1000 mg, 2 extra strength or 3 regular strength tablets every 8 hours as needed for pain. You can apply the viscous lidocaine gauze to your tooth and gently bite down on it to allowed to numb the tooth as needed. You can also use Orajel applied to the top of the tooth that is hurting. Follow-up with a dentist. All discharge instructions reviewed with patient and/or family. Voiced understanding. Scripts Amoxicillin (Amoxicillin) 500 Mg Capsule 500 MG PO TID for 7 Days, #21 CAP 0 Refills Prov: SELENA LINTON 03/09/18 Work/School Note: Work Release Form Date Seen in the Emergency Department: Mar 09, 2018 Return to Work: Mar 10, 2018 Restrictions: No Restrictions Copy Copies To 1: RUBA NICHOLS TITUS J Mar 09, 2018 01:30
[2018-03-09 01:57] VITALS: BP 127/79
== END 2018-03-09 01:57 | disposition home or self-care (01) ==
LOC: EDUNIT# 01:04 → ER 01:08
DX: K02.9 Dental caries, unspecified (principal); F17.210 Nicotine dependence, cigarettes, uncomplicated; Z90.89 Acquired absence of other organs; Z79.51 Long term (current) use of inhaled steroids
CPT/HCPCS: 99283